=== PATIENT | female | born 1995 | race Caucasian/White ===

== ENCOUNTER 2017-12-13 19:24 | Emergency (ER) ==
[2017-12-13 19:31] VITALS: BP 122/79; BMI 19.0
[2017-12-13] MEDS ORDERED: DECADRON 4 MG/ML SDV IM STA (19:38)
[2017-12-13] MEDS ORDERED: TYLENOL PO STA (19:38)
[2017-12-13] MEDS ORDERED: MOTRIN PO STA (19:40)
--- NOTE | 2017-12-13 19:42 | ED.PDOC ---
General ED Provider: Dr. DANII CHEN Chief Complaint: Fever Stated Complaint: Been coughing, congested, sinus drainage, ear pain, sore throat. fever chills Time Seen by Physician: 19:40 Mode of Arrival: Walk-In Information Source: Patient Primary Care Provider: JOHN REAGAN Nursing and Triage Documentation Reviewed and Agree: Yes Reviewed sepsis parameters & appropriate labs ordered?: Yes System Inflammatory Response Syndrome: Temp 101F or Greater, Pulse >90 BPM Sepsis Protocol: For patient's 13 years and over: Temp is 96.8 and below OR 101 and greater Pulse >90 BPM Resp >20/minute Acutely Altered Mental Status Are patient's symptoms suggestive of a new infection, such as: -Pneumonia -Skin, Soft Tissue -Endocarditis -UTI -Bone, Joint Infection -Implantable Device -Acute Abdominal Infection -Wound Infection -Meningitis -Blood Stream Catheter Infection -Unknown Respiratory Complaint Exam - Respiratory Complaint/Exam Symptoms Are: Still present Timing: Constant Current Severity: Mild Character: Reports: Productive cough Aggravating: Reports: URI Alleviating: Reports: None Associated Signs and Symptoms: Reports: Fever, Chills, URI, Nasal congestion, Hoarseness. Denies: Rapid breathing, Dyspnea, Chest pain, Pleuritic chest pain , Wheezing, Hemoptysis, Dizziness, Calf pain, Calf swelling, Edema, Sinus discomfort, Vomiting, Sore throat, Weight loss, Decreased oral intake, Increased thirst, Increased appetite, Increased urination Related History: Reports: Similar episode History of Healthcare-Acquired Pneumonia: No Related Surgical History: Reports: None Pulmonary Embolism Risk Factors: None Cardiac Risk Factors: Reports: None Pseudomonas Risk Factors: Reports: None Tuberculosis Risk Factors: Reports: None Status Asthmaticus Risk Factors: Reports: None Home Oxygen Use: No Recent Stress Test: No Recent Echo/LV Function: No Current Antibiotic Use: No Current Asthma Medication Use: No Respiratory Distress: None Inadequate Respiratory Effort: No Dysphagia Present: No Stridor Present: No JVD Present: No Accessory Muscle Use: No Retractions: Not Present Diminished Breath Sounds: No Sinus Tenderness: None Grunting Respirations: No Kussmaul Respirations: No Differential Diagnoses: Pneumonia, Bronchitis, Influenza Review of Systems - Review Of Systems Constitutional: Reports: Chills, Fever, Malaise, Weakness Eyes: Reports: No symptoms Ears, Nose, Mouth, Throat: Reports: Nose discharge Respiratory: Reports: Cough Cardiac: Reports: No symptoms GI: Reports: No symptoms : Reports: No symptoms Musculoskeletal: Reports: No symptoms Skin: Reports: No symptoms Neurological: Reports: No symptoms Endocrine: Reports: No symptoms Hematologic/Lymphatic: Reports: No symptoms All Other Systems: Reviewed and Negative Past Medical History - Past Medical History Previously Healthy: Yes Endocrine: Reports: None Cardiovascular: Reports: None Respiratory: Reports: None Hematological: Reports: None Gastrointestinal: Reports: None Genitourinary: Reports: None Neuro/Psych: Reports: None Musculoskeletal: Reports: None Cancer: Reports: None Last Menstrual Period: PATIENT ON CONTROL AND DOES NOT HAVE PERIODS - Surgical History General Surgical History: Reports: None - Family History Family History: Reports: None - Social History Smoking Status: Never smoker Hx Substance Use: No Alcohol Screening: Occasionally - Immunizations Tetanus Shot up to Date: Yes Physical Exam - Physical Exam Appearance: Ill-appearing Eyes: LAVON, EOMI ENT: TMs Occluded, Erythema, Exudate Respiratory: Airway patent, Breath sounds clear, Breath sounds equal, Respirations nonlabored Cardiovascular: RRR, Pulses normal, No rub, No murmur GI/: Soft, Nontender, No masses, Bowel sounds normal, No Organomegaly Musculoskeletal: Normal strength, ROM intact, No edema, No calf tenderness Skin: Warm, Dry, Normal color Neurological: Sensation intact, Motor intact, Reflexes intact, Cranial nerves intact, Alert, Oriented Psychiatric: Affect appropriate, Mood appropriate Critical Care Note - Critical Care Note Total Time (mins): 30 Course - Course Hematology/Chemistry: 12/13/17 19:56 12/13/17 19:56 Orders, Labs, Meds: Lab Review 12/13/17 12/13/17 12/13/17 19:36 19:56 19:56 WBC 9.01 RBC 4.97 Hgb 14.7 Hct 42.3 MCV 85.1 MCH 29.6 MCHC 34.8 RDW Coeff of Tayler 12.5 Plt Count 261 Immature Gran % (Auto) 0.2 Neut % (Auto) 78.5 Lymph % (Auto) 13.9 [place] % (Auto) 7.1 Eos % (Auto) 0.0 Baso % (Auto) 0.3 Immature Gran # (Auto) 0.0 Neut # (Auto) 7.1 H Lymph # (Auto) 1.3 [place] # (Auto) 0.6 Eos # (Auto) 0.0 Baso # (Auto) 0.0 Sodium 135 L Potassium 3.5 Chloride 102 Carbon Dioxide 22 Anion Gap 14.5 BUN 9 Creatinine 0.80 Estimated GFR (MDRD) 91.00 BUN/Creatinine Ratio 11.25 Glucose 99 Calcium 9.9 Total Bilirubin 0.4 AST 25 ALT 24 Alkaline Phosphatase 51 Total Protein 7.9 Albumin 4.0 Globulin 3.9 Albumin/Globulin Ratio 1.03 Urine Color Urine Clarity Urine pH Ur Specific [place] Urine Protein Urine Glucose (UA) Urine Ketones Urine Blood Urine Nitrite Urine Bilirubin Urine Urobilinogen Ur Leukocyte Esterase Urine Microscopic RBC Urine Microscopic WBC Ur Squamous Epith Cells Urine Bacteria Urine Mucus Urine Test Influ A Molecular Assay Negative by naat Influ B Molecular Assay Negative by naat 12/13/17 12/13/17 20:05 20:05 WBC RBC Hgb Hct MCV MCH MCHC RDW Coeff of Tayler Plt Count Immature Gran % (Auto) Neut % (Auto) Lymph % (Auto) [place] % (Auto) Eos % (Auto) Baso % (Auto) Immature Gran # (Auto) Neut # (Auto) Lymph # (Auto) [place] # (Auto) Eos # (Auto) Baso # (Auto) Sodium Potassium Chloride Carbon Dioxide Anion Gap BUN Creatinine Estimated GFR (MDRD) BUN/Creatinine Ratio Glucose Calcium Total Bilirubin AST ALT Alkaline Phosphatase Total Protein Albumin Globulin Albumin/Globulin Ratio Urine Color Yellow Urine Clarity Clear Urine pH 5.5 Ur Specific [place] >=1.030 Urine Protein 1+ Urine Glucose (UA) Negative Urine Ketones Negative Urine Blood Trace-intact Urine Nitrite Negative Urine Bilirubin Negative Urine Urobilinogen 0.2 Ur Leukocyte Esterase Negative Urine Microscopic RBC 2-5 Urine Microscopic WBC 2-5 Ur Squamous Epith Cells 2-5 Urine Bacteria Trace Urine Mucus 1+ Urine Test Negative Influ A Molecular Assay Influ B Molecular Assay Orders Category Date Time Status BLOOD CULTURE Stat LAB 12/13/17 19:56 Ordered CBC W/ AUTO DIFF Stat LAB 12/13/17 19:56 Completed COMPREHENSIVE METABOLIC PANEL Stat LAB 12/13/17 19:56 Completed MOLECULAR FLU A & B [FLU A/B MOLECULAR] Stat LAB 12/13/17 19:36 Completed MOLECULAR GROUP A STREP Stat LAB 12/13/17 19:36 Completed URINALYSIS C & S IF INDICATED Stat LAB 12/13/17 20:05 Completed URINE Stat LAB 12/13/17 20:05 Completed Acetaminophen [Tylenol] MEDS 12/13/17 19:38 Discontinued 500 mg PO ONCE STA Dexamethasone 4 mg/ml Inj [Decadron 4 mg/ml Sdv] MEDS 12/13/17 19:38 Discontinued 4 mg IM ONCE STA Ibuprofen [Motrin] MEDS 12/13/17 19:40 Discontinued 600 mg PO ONCE STA CHEST, 2 VIEWS PA & LAT Stat RADS 12/13/17 19:39 Completed Medications Discontinued Medications Generic Name Dose Route Start Last Admin Trade Name Steveq PRN Reason Stop Dose Admin Acetaminophen 500 mg 12/13/17 19:38 12/13/17 19:57 Tylenol PO 12/13/17 19:39 500 mg ONCE STA Administration Dexamethasone Sodium Phosphate 4 mg 12/13/17 19:38 12/13/17 19:56 Decadron 4 Mg/Ml Sdv IM 12/13/17 19:39 4 mg ONCE STA Administration Ibuprofen 600 mg 12/13/17 19:40 12/13/17 19:57 Motrin PO 12/13/17 19:41 600 mg ONCE STA Administration Vital Signs: Temp Pulse Resp BP Pulse Ox 12/13/17 20:56 102.3 F H 115 H 96 12/13/17 19:25 103.2 F H 138 H 20 122/79 98 Departure - Departure Time of Disposition: 20:36 Disposition: HOME SELF-CARE Discharge Problem: URTI (acute upper respiratory infection) Instructions: Upper Respiratory Infection (ED) Condition: Stable Pt referred to PMD for follow-up: Yes IPMP verified?: No Additional Instructions: Increase hydration Take medication with food Tylenol prn Prescriptions: Cephalexin [Keflex] 500 mg PO Q12HR #14 capsule Guaifenesin/Dextromethorphan [Robitussin Cough-Chest Dm Liq] 10 ml PO TID #1 bottle Prednisone 10 mg PO BIDWM #14 tablet Allergies/Adverse Reactions: Allergies amoxicillin Adverse Reaction (Verified 12/13/17 19:29) erythromycin base Adverse Reaction (Verified 12/13/17 19:29) Penicillins Adverse Reaction (Verified 12/13/17 19:29) Home Medications: Ambulatory Orders Cephalexin [Keflex] 500 mg PO Q12HR #14 capsule 12/13/17 Guaifenesin/Dextromethorphan [Robitussin Cough-Chest Dm Liq] 10 ml PO TID #1 bottle 12/13/17 Prednisone 10 mg PO BIDWM #14 tablet 12/13/17 Disposition Discussed With: Patient
[2017-12-13 20:56] VITALS: TEMP 102.3
--- NOTE | 2017-12-13 20:59 | DI ---
EXAM: PA and lateral views of the chest. HISTORY: Cough. FINDINGS: The bones are unremarkable. The cardiac silhouette and pulmonary vasculature are within no rmal limits. The costophrenic angles are clear. No infiltrate or consolidation. Impression: No acute cardiopulmonary disease.
== END 2017-12-13 21:14 | disposition home or self-care (01) ==
LOC: ED 19:24
DX: J06.9 Acute upper respiratory infection, unspecified (principal)
CPT/HCPCS: 36415; 80053; 81001; 81025; 85025; 87040; 87502; 87651; 96372; 99283

== ENCOUNTER 2018-01-14 17:14 | Emergency (ER) ==
[2018-01-14 17:18] VITALS: BP 119/76; TEMP 99; BMI 21.7
--- NOTE | 2018-01-14 18:18 | ED.PDOC ---
General ED Provider: Dr. CANDI LEGER Chief Complaint: Stated Complaint: would like to have a serum test Time Seen by Physician: 17:17 (seen with precious at all times ) Mode of Arrival: Walk-In Information Source: Patient Exam Limitations: No limitations Nursing and Triage Documentation Reviewed and Agree: Yes Reviewed sepsis parameters & appropriate labs ordered?: Yes System Inflammatory Response Syndrome: Not Applicable Sepsis Protocol: For patient's 13 years and over: Temp is 96.8 and below OR 101 and greater Pulse >90 BPM Resp >20/minute Acutely Altered Mental Status Are patient's symptoms suggestive of a new infection, such as: -Pneumonia -Skin, Soft Tissue -Endocarditis -UTI -Bone, Joint Infection -Implantable Device -Acute Abdominal Infection -Wound Infection -Meningitis -Blood Stream Catheter Infection -Unknown System Inflammatory Response Syndrome: Not Applicable Miscellaneous Complaint Exam - Complex/Multi-System Complaint/Exam Onset/Duration: pt would like to have serum test does not trust in urine test Current Severity: None Associated Signs and Symptoms: Denies: Decreased responsiveness, Confusion, Agitation, Dizziness, Weakness, Syncope, Headache, Short of air, Cough, Wheezing , Hemoptysis, Chest pain, Palpitations, Edema, Nausea, Vomiting, Diarrhea, Abdominal pain, Back pain, Dysuria, Hematemesis, Melena, Decreased oral intake, Fever, Diaphoresis, Immunocompromised, Anticoagulation Therapy, Recent medication changes, Indwelling medical coding technician, Prior MRSA, Prior VRE, Recent trauma, Remote trauma Recent Echo/LV Function: No Respiratory Distress: None JVD Present: No Tachypnea Present: No Stridor Present: No Abdominal Findings: Present: Normal findings Glascow Coma Scale (see protocol): 15 Focal Weakness: Present: None Focal Sensory Loss: Present: None Skin Findings: Present: Normal findings Review of Systems - Review Of Systems Constitutional: Reports: No symptoms Eyes: Reports: No symptoms Ears, Nose, Mouth, Throat: Reports: No symptoms Respiratory: Reports: No symptoms Cardiac: Reports: No symptoms GI: Reports: No symptoms : Reports: No symptoms Musculoskeletal: Reports: No symptoms Skin: Reports: No symptoms Neurological: Reports: No symptoms Endocrine: Reports: No symptoms Hematologic/Lymphatic: Reports: No symptoms All Other Systems: Reviewed and Negative Past Medical History - Past Medical History Previously Healthy: Yes Endocrine: Reports: None Cardiovascular: Reports: None Respiratory: Reports: None Hematological: Reports: None Gastrointestinal: Reports: None Genitourinary: Reports: None Neuro/Psych: Reports: None Musculoskeletal: Reports: None Cancer: Reports: None Last Menstrual Period: on control not sure when last one was - Surgical History General Surgical History: Reports: None - Family History Family History: Reports: None - Social History Smoking Status: Current every day smoker Hx Substance Use: No Alcohol Screening: Occasionally Physical Exam - Physical Exam Appearance: Well-appearing, No pain distress, Well-nourished Eyes: LAVON, EOMI, Conjunctiva clear ENT: Ears normal, Nose normal, Oropharynx normal Respiratory: Airway patent, Breath sounds clear, Breath sounds equal, Respirations nonlabored Cardiovascular: RRR, Pulses normal, No rub, No murmur GI/: Soft, Nontender, No masses, Bowel sounds normal, No Organomegaly Musculoskeletal: Normal strength, ROM intact, No edema, No calf tenderness Skin: Warm, Dry, Normal color Neurological: Sensation intact, Motor intact, Reflexes intact, Cranial nerves intact, Alert, Oriented Psychiatric: Affect appropriate, Mood appropriate Critical Care Note - Critical Care Note Total Time (mins): 0 Course - Course Vital Signs: Temp Pulse Resp BP Pulse Ox 01/14/18 17:15 99.0 F 93 H 20 119/76 97 Departure - Departure Time of Disposition: 19:00 Disposition: HOME SELF-CARE Discharge Problem: Normal exam Instructions: Normal Exam (ED) Condition: Good Pt referred to PMD for follow-up: Yes IPMP verified?: No Additional Instructions: Please call your Family Physician as soon as possible to schedule a follow-up appointment. Allergies/Adverse Reactions: Allergies amoxicillin Adverse Reaction (Verified 01/14/18 17:18) erythromycin base Adverse Reaction (Verified 01/14/18 17:18) Penicillins Adverse Reaction (Verified 01/14/18 17:18) Home Medications: Ambulatory Orders Buspirone HCl 15 mg PO BID 01/14/18 Quetiapine Fumarate [Seroquel] 100 mg PO DAILY 01/14/18
== END 2018-01-14 19:10 | disposition home or self-care (01) ==
LOC: ED 17:14
DX: Z32.02 Encounter for pregnancy test, result negative (principal); F17.210 Nicotine dependence, cigarettes, uncomplicated
CPT/HCPCS: 36415; 84703; 99282